=== PATIENT | male | born 1935 | race Two or more races ===

== ENCOUNTER 2017-01-11 09:48 | Outpatient (RCR) | payer OTHER | END 2017-01-16 | disposition home or self-care (01) | LOC: PTY 09:48 | DX: M54.16 Radiculopathy, lumbar region (principal); M48.06 Spinal stenosis, lumbar region | CPT/HCPCS: 97110; 97140; 97161; G0283 ==

== ENCOUNTER 2017-01-20 10:50 | Outpatient (RCR) | payer OTHER | END 2017-02-16 | disposition home or self-care (01) | LOC: PTY 10:50 | DX: M51.36 Other intervertebral disc degeneration, lumbar region (principal); M48.061 Spinal stenosis, lumbar region without neurogenic claudication | CPT/HCPCS: 97035; 97110; 97140; G0283 ==